=== PATIENT | male | born 1970 | race Caucasian/White ===

== ENCOUNTER 2021-05-12 09:45 | Outpatient (RCR) | payer OTHER ==
[2021-05-13] MEDS ORDERED: ANUSOL-HC SUPPO25 MG RC (15:08)
[2021-05-13] MEDS ORDERED: DULCOLAX STOOL100 MG PO (15:08)
== END 2021-07-07 | disposition home or self-care (01) ==
LOC: WSPT
DX: M51.36 Other intervertebral disc degeneration, lumbar region (principal)

== ENCOUNTER 2021-05-13 12:43 | Emergency (ER) | payer OTHER ==
[~2021-05-13] VITALS: Ht 180.3 cm; Wt 93.6 kg
[2021-05-13 13:06] VITALS: BP 158/85; TEMP 98.1
[2021-05-13 14:28] LABS: BASO # 0.1 (0.0-0.2); BASO % 0.7 % (0.0-2.0); EOS # 0.2 (0.0-0.7); EOS % 1.9 % (0-4.0); GRAN # 5.9 (1.4-6.5); GRAN % 60.2 % (42.2-75.2); HEMATOCRIT 46.7 % (42.0-52.0); HEMOGLOBIN 16.3 g/dl (13.5-18.0); LYMPH % 30.8 % (20.0-51.0); MEAN CELL VOLUME 90 fl (80.0-100.0); MEAN CORPUSCULAR HEMOGLOBIN 32 pg (27.0-31.0); MEAN CORPUSCULAR HGB CONC 35 g/dl (33.0-37.0); MEAN PLATELET VOLUME 8.8 fl (7.4-10.4); MONO # 0.6 (0.1-0.6); MONO % 6.2 % (1.7-9.3); PLATELET COUNT 396 K/mm3 (130-400); RED BLOOD COUNT 5.17 M/mm3 (4.20-5.60); REDCELL DISTRIBUTION WIDTH-CV 13.7 % (11.5-14.5)
[2021-05-13 14:44] LABS: ALBUMIN 4.2 gm/dL (3.5-5.0); BILIRUBIN,TOTAL 0.8 mg/dL (0.2-1.2); CALCIUM 9.4 mg/dL (8.4-10.2); POTASSIUM 4.3 mmol/L (3.5-4.5); TOTAL PROTEIN 7.1 gm/dL (6.2-8.1)
[2021-05-13] MEDS ORDERED: ANUSOL-HC SUPPO25 MG RC (15:08)
[2021-05-13] MEDS ORDERED: DULCOLAX STOOL100 MG PO (15:08)
[2021-05-13 15:47] VITALS: PULSE 73
== END 2021-05-13 15:47 | disposition home or self-care (01) ==
LOC: COL.ER 12:43
PROVIDERS: Personal Emergency Response Attendant
DX: K64.9 Unspecified hemorrhoids (principal); Z88.1 Allergy status to other antibiotic agents

== ENCOUNTER 2023-05-13 14:15 | Outpatient (RCR) | payer OTHER ==
[~2023-05-13 14:15] MED LIST: ANUSOL-HC SUPPO25 MG RC; CIALIS20 MG PO; DULCOLAX STOOL100 MG PO; MEN'S ONE DAIL1 EACH PO
== END 2023-05-14 | disposition home or self-care (01) ==
LOC: WSC
DX: M54.50 Low back pain, unspecified (principal)